=== PATIENT | female | born 1930 | race Caucasian/White ===

== ENCOUNTER 2017-06-24 07:59 | Day surgery (SDC) | payer MEDICARE ==
[~2017-06-24] VITALS: Ht 154.9 cm; Wt 49.5 kg
[2017-06-24] VITALS (7 sets, daily range): BP systolic 134–157; BP diastolic 42–69; PULSE 70–89; TEMP 97.4–97.5
[2017-06-24] MEDS ORDERED: RESTASIS0.05% OP (08:32)
[2017-06-24] MEDS ORDERED: AMBIEN 5MG TABLE5 MG PO (08:34)
[2017-06-24] MEDS ORDERED: VISINE TEARS 0.30 ML OP (08:35)
[2017-06-24] MEDS ORDERED: VITAMIN D3400 I1 PO (08:36)
[2017-06-24 09:03] LABS: HEMATOCRIT 37.1 % (37.0-47.0); MEAN CELL VOLUME 98 fl (80.0-100.0); MEAN CORPUSCULAR HEMOGLOBIN 30 pg (27.0-31.0); MEAN CORPUSCULAR HGB CONC 30 g/dl (33.0-37.0); MEAN PLATELET VOLUME 9.4 fl (7.4-10.4); PLATELET COUNT 381 K/mm3 (130-400); RED BLOOD COUNT 3.77 M/mm3 (4.10-5.30)
[2017-06-24 09:11] LABS: HEMOGLOBIN 11.2 g/dl (12.5-16.0)
[2017-06-24] MEDS ORDERED: NORCO 325 MG-51 TAB PO (12:54)
== END 2017-06-24 15:29 | disposition home or self-care (01) ==
LOC: SDCO 07:59
PROVIDERS: Nurse Anesthetist, Certified Registered
DX: C50.012 Malignant neoplasm of nipple and areola, left female breast (principal); Z85.6 Personal history of leukemia; E03.9 Hypothyroidism, unspecified; Z82.5 Family history of asthma and other chronic lower respiratory diseases; M19.90 Unspecified osteoarthritis, unspecified site; Z82.49 Family history of ischemic heart disease and other diseases of the circulatory system; Z80.3 Family history of malignant neoplasm of breast; Z81.8 Family history of other mental and behavioral disorders; Z80.6 Family history of leukemia
CPT/HCPCS: J0690; J1100; J2270; J2405; J2704; J3010; J7120

== ENCOUNTER 2017-07-01 09:34 | Day surgery (SDC) | payer MEDICARE ==
[~2017-07-01] VITALS: Ht 154.9 cm; Wt 94.6 kg
[~2017-07-01 09:34] MED LIST: AMBIEN 5MG TABLE5 MG PO; NORCO 325 MG-51 TAB PO; RESTASIS0.05% OP; VISINE TEARS 0.30 ML OP; VITAMIN D3400 I1 PO
[2017-07-01 10:37] VITALS: BP 147/56; PULSE 76; TEMP 97.9
[2017-07-01 12:10] VITALS: BP 116/53; PULSE 72; TEMP 97.1
[2017-07-01 12:25] VITALS: BP 124/54; PULSE 65
[2017-07-01 12:40] VITALS: BP 119/43; PULSE 67
[2017-07-01 12:55] VITALS: BP 140/57; PULSE 67
== END 2017-07-01 13:20 | disposition home or self-care (01) ==
LOC: SDCO 09:34
DX: C50.112 Malignant neoplasm of central portion of left female breast (principal); E03.9 Hypothyroidism, unspecified; C91.10 Chronic lymphocytic leukemia of B-cell type not having achieved remission; Z82.5 Family history of asthma and other chronic lower respiratory diseases; Z81.8 Family history of other mental and behavioral disorders; Z82.49 Family history of ischemic heart disease and other diseases of the circulatory system; Z80.6 Family history of leukemia; M19.90 Unspecified osteoarthritis, unspecified site
CPT/HCPCS: J0690; J2704; J3010; J7120

== ENCOUNTER → 2017-09-12 | Outpatient (CLI) | payer MEDICARE | LOC: ZCOL.LAB 15:00 | DX: T81.4XXA Infection following a procedure, initial encounter (principal) ==

== ENCOUNTER 2017-10-08 07:45 | Day surgery (SDC) | payer MEDICARE ==
[~2017-10-08] VITALS: Ht 154.9 cm; Wt 46.1 kg
[2017-10-08] VITALS (11 sets, daily range): BP systolic 92–156; BP diastolic 40–90; PULSE 70–87; TEMP 97–98.7
[2017-10-08] MEDS ORDERED: MULTI VITAMINS1 TAB PO (08:10)
[2017-10-08 08:35] LABS: MEAN CELL VOLUME 101 fl (80.0-100.0); MEAN CORPUSCULAR HGB CONC 29 g/dl (33.0-37.0); MEAN PLATELET VOLUME 9.3 fl (7.4-10.4); PLATELET COUNT 366 K/mm3 (130-400); RED BLOOD COUNT 3.62 M/mm3 (4.10-5.30); REDCELL DISTRIBUTION WIDTH-CV 16.6 % (11.5-14.5)
[2017-10-08 08:49] LABS: HEMATOCRIT 36.6 % (37.0-47.0); HEMOGLOBIN 10.7 g/dl (12.5-16.0); MEAN CORPUSCULAR HEMOGLOBIN 30 pg (27.0-31.0)
[2017-10-08 08:53] LABS: CALCIUM 9.4 mg/dL (8.4-10.2); CREATININE, serum 0.75 mg/dL (0.52-1.25)
[2017-10-08] MEDS ORDERED: AMBIEN 5MG TABLE5 MG PO (18:03)
[2017-10-09 01:39] VITALS: BP 128/44; PULSE 71; TEMP 97.8
[2017-10-09 05:31] VITALS: BP 158/61; PULSE 78; TEMP 97.7
[2017-10-09 09:28] VITALS: BP 131/54; PULSE 74; TEMP 98.3
[2017-10-09 13:36] VITALS: BP 130/56; PULSE 74; TEMP 98.3
== END 2017-10-09 17:42 | disposition home or self-care (01) ==
LOC: SDCO 07:45 → SURG 12:45 → SDCO 10-09 17:42
PROVIDERS: Surgery
DX: T81.89XA Other complications of procedures, not elsewhere classified, initial encounter (principal); C50.112 Malignant neoplasm of central portion of left female breast; Z90.13 Acquired absence of bilateral breasts and nipples; C91.10 Chronic lymphocytic leukemia of B-cell type not having achieved remission; E03.9 Hypothyroidism, unspecified; M81.0 Age-related osteoporosis without current pathological fracture; E88.81 Metabolic syndrome and other insulin resistance; G47.00 Insomnia, unspecified; H35.30 Unspecified macular degeneration
CPT/HCPCS: OP; J0690; J1100; J1885; J2250; J2405; J2704; J2795; J3010; J7120